=== PATIENT | female | born 1975 | race Caucasian/White ===

== ENCOUNTER 2016-06-19 18:22 | Emergency (ER) | payer OTHER ==
[2016-06-19 18:34] VITALS: BP 135/86; PULSE 104; TEMP 98.4; BMI 25.2
[2016-06-19] MEDS ORDERED: IBUPROFEN 600 MG TABLET (FP) PO ONE ×2 (18:48→18:52)
--- NOTE | 2016-06-19 18:55 | PDOC ---
History of Present Illness - General Chief Complaint: Cold Symptoms Stated Complaint: FEVER Time Seen by Provider: 06/19/16 18:35 History Source: Patient, Friend Exam Limitations: Language Barrier - History of Present Illness Initial Comments: 06/19/16 18:51 40 yr female no medical history with c/o fever, nasal congestion sore throat for 4 days. sick contacts at home same symptoms, sister with same. no med history LMP 2 weeks ago. took motrin yesterday. Past History - Past Medical History Allergies/Adverse Reactions: Allergies Allergy/AdvReac Type Severity Reaction Status Date / Time No Known Allergies Allergy Verified 06/19/16 18:34 Home Medications: Ambulatory Orders Ibuprofen 600 mg PO QID PRN #30 tablet 06/19/16 Other medical history: NONE - Psycho/Social/Smoking Cessation Hx Anxiety: No Suicidal Ideation: No Smoking History: Never smoked Hx Alcohol Use: No Drug/Substance Use Hx: No Substance Use Type: None Respiratory Specific PMHX - Complaint Specific PMHX Angina: No Bronchitis: No Pneumonia: No Pulmonary Embolus: No TB (Tuberculosis): No Review of Systems - Review of Systems Able to Perform ROS?: Yes Comments:: 06/19/16 18:52 Is the patient limited [place] proficient: No Constitutional: Yes: Symptoms Reported HEENTM: Yes: Symptoms Reported *Physical Exam - Vital Signs Last Vital Signs Temp Pulse Resp BP Pulse Ox 98.4 F 104 H 20 135/86 98 06/19/16 18:31 06/19/16 18:31 06/19/16 18:31 06/19/16 18:31 06/19/16 18:31 - Physical Exam General Appearance: Yes: Nourished, Appropriately Dressed HEENT: positive: EOMI, ANA LAURA, TMs Normal, Tonsillar Erythema, Other (cold sores lower lip ) Neck: positive: Supple Respiratory/Chest: positive: Lungs Clear, Normal Breath Sounds Cardiovascular: positive: Regular Rhythm, Regular Rate Gastrointestinal/Abdominal: positive: Normal Bowel Sounds, Soft Musculoskeletal: positive: Normal Inspection Extremity: positive: Normal Capillary Refill, Normal Inspection, Normal Range of Motion Integumentary: positive: Normal Color, Dry, Warm Neurologic: positive: Fully Oriented, Alert, Normal Mood/Affect, Normal Response , Motor Strength 5/5 Medical Decision Making - Medical Decision Making 06/19/16 18:53 cc: sore throat fever ear pain will r/o strep sister with same most likely viral flu like syndrome non toxic eating and drinking *DC/Admit/Observation/Transfer Diagnosis at time of Disposition: Influenza-like symptoms Pharyngitis Qualifiers: Pharyngitis/tonsillitis etiology: unspecified etiology Qualified Code(s): J02.9 - Acute pharyngitis, unspecified - Discharge Dispostion Disposition: HOME Condition at time of disposition: Improved - Prescriptions Prescriptions: Ibuprofen 600 mg PO QID PRN #30 tablet PRN Reason: Fever Or Pain - Referrals Referrals: STAFF,NOT ON [Primary Care Provider] - [facility] (Ann-Marie Balbuena) [Outside] - Patient Instructions Additional Instructions: Drink at least 2-3 liters of water a day take ibuprofen 600mg every 6hrs for fever or pain as directed get pleanty of rest wash hands frequently sore throat lozengers of your choice can help with sore throat tea with honey and lemon follow up at the [facility] this week if any worsening symptoms Return to ER if worse
== END 2016-06-19 19:12 | disposition home or self-care (01) ==
LOC: JERFT 18:22
DX: J11.1 Influenza due to unidentified influenza virus with other respiratory manifestations (principal); J02.9 Acute pharyngitis, unspecified
CPT/HCPCS: 87070; 87430; 99281-25

== ENCOUNTER 2022-05-04 09:36 | Day surgery (SDC) | payer OTHER ==
[2022-04-28 12:12] VITALS: BMI 21.8
[2022-05-04] MEDS ORDERED: PROPOFOL 60 ML ONE (11:03)
[2022-05-04 11:33] VITALS: PULSE 85; RESP 18; TEMP 97.4
[2022-05-04 11:34] VITALS: BP 96/43
== END 2022-05-04 11:53 | disposition home or self-care (01) ==
LOC: FASU-ENDO 09:36
PROVIDERS: ATTEND Internal Medicine Gastroenterology
PROC: 0DBN8ZX Excision of Sigmoid Colon, Via Natural or Artificial Opening Endoscopic, Diagnostic (ICD-10-PCS; principal; 2022-05-04 11:15)
DX: Z12.11 Encounter for screening for malignant neoplasm of colon (principal); K63.5 Polyp of colon; K64.1 Second degree hemorrhoids
CPT/HCPCS: 81025; 88305-TC

== ENCOUNTER → 2023-07-20 | Day surgery (SDC) | payer OTHER | END | disposition home or self-care (01) | LOC: FMAMMOTONE 10:04 | PROVIDERS: ATTEND Physician Assistant | PROC: 0HBU3ZX Excision of Left Breast, Percutaneous Approach, Diagnostic (ICD-10-PCS; principal; 2023-07-20) | DX: R92.1 Mammographic calcification found on diagnostic imaging of breast (principal); N60.22 Fibroadenosis of left breast; N64.89 Other specified disorders of breast | CPT/HCPCS: 19081; 76098-TC-FY; 88305-TC; 88341-TC; 88342-TC ==